=== PATIENT | female | born 1995 | race Caucasian/White ===

== ENCOUNTER 2024-10-19 20:07 | Emergency (ER) | payer OTHER, SELFPAY ==
[2024-10-19 20:10] VITALS: BP 154/114
--- NOTE | 2024-10-19 20:18 | ED.GENMED ---
History of Present Illness
General
Chief Complaint: Breathing Problem
Source: patient
Exam Limitations: none
Time Seen by Provider: 10/19/24 20:15
History of Present Illness
History of Present Illness:
29yoF with a history of factor V Leiden and pulmonary embolism in 2020 no longer on anticoagulation presenting for evaluation of shortness of breath. Patient was at her nephew's birthday democr[employer] this afternoon. While she was at the democrat, she
started to experience trouble catching her breath. She also noticed some left sided chest discomfort. Additionally, she reports intermittent LLQ pain but has none currently. She had 2 episodes of diarrhea in the past 1-2 hours. She became
concerned for a PE so came to the ED for evaluation. She denies any leg swelling, calf pain, dizziness, syncope. No recent travel, recent surgeries, or exogenous estrogen use.
Past History
Past History
ED Past Medical History: None
ED Past Surgical History: None
Social History
Tobacco: Former smoker
Alcohol: Occasional
Drug: None
Personal: Single
Living: with family
Employment: Employed
Family History
Family History: Other (Noncontributory)
Phy Exam
General Physical Exam
General Presentation: well appearing and no apparent distress
General Skin: warm and dry
General Habitus: normal
General Mental: alert
ENT Exam
ENT Exam: normocephalic
Cardiovascular Exam
Cardiovascular Exam: regular rate/rhythm, no edema and no murmur
Pulmonary Exam
Pulmonary Exam: lungs clear, no respiratory distress, no rales, no crackles, no rhonchi and no wheezing
Gastrointestinal Exam
Gastrointestinal Exam: non tender, soft and non distended
Neurological Exam
Neurological Exam: alert
[place] Coma Scale
Eye Opening: Spontaneous
Verbal Response: Oriented
Motor Response: Obeys Commands
GCS Total Score: 15
Skin Exam
Skin Exam: normal color and warm/dry
Psychiatric Exam
Psychiatric Exam: normal mood/affect
Course
Orders/Labs/Results
Orders:
Orders
10/19/24 20:13
EKG [Electrocardiogram (*1)] Urgent
Reason for Study: Shortness of Breath
10/19/24 20:14
EKG- Treatment ONCE
10/19/24 20:29
CT Chest PE Study Urgent
Comment:
Reason For Exam: SOB, hx of PE
Cardiac Monitoring- Treatment ONCE
Test Result ONCE
10/19/24 20:32
Complete Blood Count/With Diff Urgent
Comprehensive Metabolic Panel Urgent
HCG, Serum Qualitative Screen Urgent
Lipase Urgent
NT-proBNP Urgent
Troponin I Urgent
Abnormal Lab Results
10/19/24
20:32
Hct 36.7 L %
(37.0-47.0)
Absolute Monos (auto) 0.7 H 10^3/uL
(0.1-0.6)
Chloride 110 H mmol/L
(98-107)
Glucose 170 H mg/dl
(70-99)
10/19/24 20:32
10/19/24 20:32
Vital Signs
Initial and Last Documented VS:
Initial Vital Signs
Temp Pulse Resp BP Pulse Ox
98 F 104 22 154/114 99
10/19/24 20:10 10/19/24 20:10 10/19/24 20:10 10/19/24 20:10 10/19/24 20:10
Last Documented Vital Signs
Temp Pulse Resp BP Pulse Ox
98 F 73 23 152/96 97
10/19/24 20:10 10/19/24 23:00 10/19/24 23:00 10/19/24 23:00 10/19/24 23:00
MDM/Problems Addressed
Differential Diagnosis Includes:
29yoF here with SOB and CP that began this afternoon. Hx of PE and factor V leiden. Also c/o intermittent LLQ pain but none currently and abdominal exam is benign. HR 104 in triage. Oxygen saturation 99%. She is well appearing in no distress and
exam is reassuring. Differential diagnosis includes but is not limited to: physical deconditioning, PE, pneumonia, bronchitis, less likely ACS
Initial ED plan: EKG shows NSR without ischemic changes. Will check cardiac labs and proceed with CTA chest.
*Pulse Oximetry
SaO2: 99
Oxygen Mode of Delivery: Room air
Patient hypoxic: no (99%)
*EKG
Interpreted by ED Provider?: Yes
EKG Intrepretation Date: 10/19/24
Heart Rate: 93
Rate: normal
Rhythm: sinus
Heath: normal axis
Interval: normal interval
QRS Pattern: normal QRS
Ischemia: no ischemia
*Critical Care Note
Total Time (30-74mins, 75-104mins- exclusive of procedures): Not Applicable
Update Note
Update Note:
Labs unremarkable. Both troponin and BNP are normal. Preliminary [facility] report is negative for pulmonary embolism. Oxygen saturation 99-100% on reassessment and she denies having any dyspnea at rest. Patient is stable for discharge.
Advised close f/u with PCP and ED return precautions reviewed.
ED Attending Note
-
Portions of this chart may have been created with voice recognition software.� Occasional wrong word or��sound alike� substitutions may have occurred due to the inherent limitations of voice recognition software.
Discharge Plan
Departure
Patient Disposition: Home (Routine Discharge)
Date of Disposition: 10/19/24
Time of Disposition: 22:11
Patient with high blood pressure during this ER visit?: Yes
Discharge Problem:
Shortness of breath
Instructions: Shortness of Breath (Dyspnea) (DC)
Prescriptions:
No Action
cyanocobalamin (vitamin B-12) 1,000 MCG tablet
1,000 mcg PO DAILY Qty: 30 0RF
apixaban [Eliquis DVT-PE Treat 30D Start] 5 MG tablets,dose pack
5 - 10 mg PO DIRECTED Qty: 1 0RF
Referrals:
Ofelia Flowers MD [Family Provider, [facility]]
Activity Restrictions/Additional Instructions:
Please follow with your family doctor on Monday. Return to the ER with any new or worsening symptoms.
Interventions
Interventions:
*Risk Screen - Suicide Last Done: 10/19/24 20:10
*General Assessment Last Done: 10/19/24 20:10
*Neglect/Abuse Screening Last Done: 10/19/24 20:10
*ED- Fall Risk Assessment Last Done: 10/19/24 20:20
*ED COVID-19 Vaccine History Last Done: 10/19/24 20:20
*Nursing Disposition Last Done: 10/19/24 23:06
ED- Cardiac Assessment Last Done: 10/19/24 20:20
ED- Pulmonary Assessment Last Done: 10/19/24 20:20
Discharge Date and Time
Discharge Date/Time: 10/19/24 23:07
Print Language: PAKIST[place]
[2024-10-19 20:31] VITALS: BMI 39.5
[2024-10-19 20:51] VITALS: BP 146/88
[2024-10-19 20:52] LABS: Hematocrit 36.7 % (37.0-47.0); Hemoglobin 12.4 g/dL (12.0-16.0); Mean Corp Hgb Conc. 33.8 g/dL (33.0-37.0); Mean Corpuscular Volume 82.3 fL (81.0-99.0); Nucleated Red Blood Cells % 0 %; Platelet Count 343 10^3/uL (130-400); Red Cell Dist. Width 12.5 % (11.5-14.5)
[2024-10-19 21:00] VITALS: BP 144/98
[2024-10-19 21:08] LABS: HCG, Serum Qualitative Screen Negative
[2024-10-19 21:11] LABS: ALT (SGPT) 25 U/L (0-35); AST (SGOT) 16 U/L (14-36); Albumin 4.4 g/dl (3.5-5.0); Alkaline Phosphatase 72 U/L (38-126); Blood Urea Nitrogen 17 mg/dl (7-17); Calcium 10.0 mg/dl (8.4-10.2); Carbon Dioxide 24 mmol/L (22-30); Chloride 110 mmol/L (98-107); Estimated Creatinine Clearance > 125 ml/min; Glucose 170 mg/dl (70-99); Lipase 173 U/L (23-300); Potassium 4.2 mmol/L (3.5-5.1); Sodium 141 mmol/L (135-145); Total Protein 7.1 g/dl (6.3-8.2); eGFR > 60.00
[2024-10-19 21:18] LABS: Troponin I < 0.012 ng/ml
[2024-10-19 21:48] VITALS: BP 172/91
[2024-10-19 22:00] VITALS: BP 153/98
[2024-10-19 23:00] VITALS: BP 152/96
== END 2024-10-19 23:07 | disposition home or self-care (01) ==
LOC: EMR 20:07
PROVIDERS: Physician Assistant; EMERGENCY PHYSICIAN Emergency Medicine; FAMILY PHYSICIAN Family Medicine
DX: R06.02 Shortness of breath (principal); R07.89 Other chest pain; D68.51 Activated protein C resistance; Z86.711 Personal history of pulmonary embolism; Z87.891 Personal history of nicotine dependence
CPT/HCPCS: 99284; 71275; 80053; 83690; 83880; 84484; 84703; 85025; 93005; Q9967